=== PATIENT | male | born 1960 | race Caucasian/White ===

== ENCOUNTER → 2017-04-23 | Outpatient (CLI) | payer OTHER ==
[2017-04-23 08:09] LABS: ABSOLUTE BASOPHILS # (AUTO) 0.1 10^3/uL (0.0-0.2); ABSOLUTE EOSINOPHILS # (AUTO) 0.5 10^3/uL (0.0-0.6); ABSOLUTE LYMPHOCYTES (AUTO) 2.2 10^3/uL (0.5-4.7); ABSOLUTE MONOCYTES (AUTO) 0.8 10^3/uL (0.1-1.4); ABSOLUTE NEUT (AUTO) 3.7 10^3/uL (1.7-8.2); BASOPHILS % (AUTO) 1.2 % (0-2); EOSINOPHILS % (AUTO) 6.4 % (0-6); HEMATOCRIT 36.8 % (37.9-51.0); HEMOGLOBIN 11.8 g/dL (13.5-17.0); HGB HCT DIFFERENCE -1.4; LYMPHOCYTES % (AUTO) 30.2 % (13-45); MEAN CORPUSCULAR HEMOGLOBIN 31.5 pg (27.0-33.4); MEAN CORPUSCULAR HGB CONC 31.9 g/dL (32.0-36.0); MEAN CORPUSCULAR VOLUME 99 fl (80-97); MONOCYTES % (AUTO) 11.2 % (3-13); RED BLOOD COUNT 3.73 10^6/uL (4.35-5.55); WHITE BLOOD COUNT 7.2 10^3/uL (4.0-10.5)
[2017-04-23 08:13] LABS: APPEARANCE,URINE CLEAR; BILIRUBIN,URINE NEGATIVE (NEGATIVE); GLUCOSE, URINE NEGATIVE (NEGATIVE); KETONES,URINE NEGATIVE (NEGATIVE); LEUKOCYTE ESTERASE,URINE NEGATIVE (NEGATIVE); NITRITE,URINE NEGATIVE (NEGATIVE); PROTEIN,URINE NEGATIVE (NEGATIVE); URINE SPECIFIC GRAVITY 1.019; UROBILINOGEN,URINE NEGATIVE mg/dL (<2.0)
[2017-04-23 08:18] LABS: PROTHROMBIN TIME 13.3 SEC (11.4-15.4)
[2017-04-23 08:19] LABS: PARTIAL THROMBOPLASTIN TIME 32.3 SEC (23.5-35.8)
== END ==
LOC: OD 07:36
PROVIDERS: ATTEND Pain Medicine Interventional Pain Medicine
DX: Z79.1 Long term (current) use of non-steroidal anti-inflammatories (NSAID) (principal)
CPT/HCPCS: 36415; 81001; 85025; 85610; 85730

== ENCOUNTER 2017-05-24 06:18 | Emergency (ER) | payer OTHER ==
--- NOTE | 2017-05-24 07:30 | ER Document Report ---
HPI - HPI Patient complains to provider of: Right shoulder injury May 02 Onset: Other - May 02 Onset/Duration: Persistent, Better Pain Level: 3 Context: 57-year-old male stumbled and fell into the wall hitting his right shoulder on May 02. The pain and bruising has improved but still persisted. He is already on pain management to the other orthopedic issues but he wants to make sure nothing is broken. Associated Symptoms: None Exacerbated by: Movement - Abduction Relieved by: Denies - ROS ROS below otherwise negative: Yes Systems Reviewed and Negative: Yes All other systems reviewed and negative - REPRODUCTIVE Reproductive: DENIES: : - DERM Skin Color: Normal Past Medical History - General Information source: Patient - Social History Smoking Status: Unknown if Ever Smoked Frequency of alcohol use: None Drug Abuse: None Lives with: Spouse/Significant other Family History: Reviewed & Not Pertinent, Arthritis, CAD, CVA, DM, Hyperlipidemia, Hypertension - Past Medical History Cardiac Medical History: Reports: Hx Hypercholesterolemia, Hx Hypertension Endocrine Medical History: Reports: Hx Diabetes Mellitus Type 2 Renal/ Medical History: Denies: Hx Peritoneal Dialysis GI Medical History: Reports: Hx Gastroesophageal Reflux Disease, Hx Colonoscopy Musculoskeltal Medical History: Reports Hx Arthritis, Reports Hx Musculoskeletal Deformity, Reports Hx Musculoskeletal Trauma - L leg Psychiatric Medical History: Reports: Hx Depression Traumatic Medical History: Reports: Hx Fractures Past Surgical History: Reports: Hx Kidney (Renal Surgery) - stones removed stent , Hx Oral Surgery, Hx Orthopedic Surgery - back, cancer removed for left thigh, left hip surgery x4, Hx Tonsillectomy - Immunizations Hx Diphtheria, Pertussis, Tetanus Vaccination: Yes Vertical Provider Document - CONSTITUTIONAL Agree With Documented VS: Yes Exam Limitations: No Limitations General Appearance: No Apparent Distress - INFECTION CONTROL TRAVEL OUTSIDE OF THE [place] IN LAST 30 DAYS: No - HEENT HEENT: Atraumatic, Normocephalic - NECK Neck: Supple - RESPIRATORY Respiratory: Breath Sounds Normal, No Respiratory Distress O2 Sat by Pulse Oximetry: 98 - CARDIOVASCULAR Cardiovascular: Regular Rate, Regular Rhythm - MUSCULOSKELETAL/EXTREMETIES Musculoskeletal/Extremeties: Non-Tender. negative: FROM Notes: unable to abduct right arm past 90 degrees due to right shoulder joint stiffness. no point tenderness, states it hurts inside the joint. Distal n/v intact. internal external and aduction OK. - NEURO Level of Consciousness: Awake, Alert, Appropriate Motor/Sensory: No Motor Deficit, No Sensory Deficit - DERM Integumentary: Warm, Dry, No Rash Course - Re-evaluation Re-evalutation: 05/24/17 X ray negative per radiologist. - Vital Signs Vital signs: Temp Pulse Resp BP Pulse Ox 98.6 F 86 20 104/62 98 05/24/17 06:39 05/24/17 06:39 05/24/17 06:39 05/24/17 06:39 05/24/17 06:39 Discharge - Discharge Clinical Impression: right shoulder injury, limited aduction of right shoulder Condition: Good Disposition: HOME, SELF-CARE Instructions: Shoulder Injury ([facility]), Exercise Program for the Shoulder ([facility]) Additional Instructions: call for orthopedic appointment this week gentle range of motion of the shoulder joint copy of negative xray reort per radiologist to er any concerns Please complete the patient satisfaction survey if you get one, and return it.. If you do not receive a survey, then you can go to the [facility] website, [email or web address] and place your comments about your very good care. Thank you very much. It was a pleasure being your medical provider today. Referrals: LORENA ARNOLD MD [ACTIVE STAFF] - Follow up in 3-5 days
--- NOTE | 2017-05-24 08:01 | RADIOLOGY REPORT (SQ) ---
EXAM DESCRIPTION: SHOULDER RIGHT 2 OR MORE VIEWS COMPLETED DATE/TIME: 05/24/2017 7:37 am REASON FOR STUDY: fall injury COMPARISON: None. NUMBER OF VIEWS: Three views. TECHNIQUE: Internal rotation, external rotation, and Y view images acquired of the right shoulder. LIMITATIONS: None. FINDINGS: MINERALIZATION: Normal. BONES: No acute fracture or dislocation. No worrisome bone lesions. JOINTS: No dislocation. VISUALIZED LUNGS AND RIBS: No pneumothorax. No rib fracture. SOFT TISSUES: No radiopaque foreign body. OTHER: No other significant finding. IMPRESSION: NEGATIVE STUDY OF THE RIGHT SHOULDER. NO RADIOGRAPHIC EVIDENCE OF ACUTE INJURY. TECHNICAL DOCUMENTATION: JOB ID: [id number] [employer]- All Rights Reserved
[2017-05-24 08:50] VITALS: BP 109/60
== END 2017-05-24 08:40 | disposition home or self-care (01) ==
LOC: ER 06:18
DX: S49.91XA Unspecified injury of right shoulder and upper arm, initial encounter (principal); X58.XXXA Exposure to other specified factors, initial encounter; E78.00 Pure hypercholesterolemia, unspecified; I10 Essential (primary) hypertension; E11.9 Type 2 diabetes mellitus without complications; K21.9 Gastro-esophageal reflux disease without esophagitis
CPT/HCPCS: 99283

== ENCOUNTER 2017-07-10 10:37 | Day surgery (SDC) | payer OTHER ==
--- NOTE | 2017-07-03 09:33 | RADIOLOGY REPORT (SQ) ---
EXAM DESCRIPTION: CHEST PA/LATERAL COMPLETED DATE/TIME: 07/03/2017 9:24 am REASON FOR STUDY: PRE-OP COMPARISON: CHEST FILMS 04/30/2015, 07/16/2015, 09/10/2015 EXAM PARAMETERS: NUMBER OF VIEWS: two views TECHNIQUE: Digital Frontal and Lateral radiographic views of the chest acquired. RADIATION DOSE: NA LIMITATIONS: none FINDINGS: LUNGS AND PLEURA: No opacities, masses or pneumothorax. No pleural effusion. MEDIASTINUM AND HILAR STRUCTURES: No masses or contour abnormalities. HEART AND VASCULAR STRUCTURES: Heart normal size. No evidence for failure. BONES: Osteopenic HARDWARE: None in the chest. OTHER: No other significant finding. IMPRESSION: NO SIGNIFICANT RADIOGRAPHIC FINDING IN THE CHEST. TECHNICAL DOCUMENTATION: JOB ID: [id number] [employer]- All Rights Reserved
[2017-07-03 09:58] LABS: ABSOLUTE BASOPHILS # (AUTO) 0.1 10^3/uL (0.0-0.2); ABSOLUTE EOSINOPHILS # (AUTO) 0.6 10^3/uL (0.0-0.6); ABSOLUTE LYMPHOCYTES (AUTO) 2.1 10^3/uL (0.5-4.7); ABSOLUTE MONOCYTES (AUTO) 0.9 10^3/uL (0.1-1.4); ABSOLUTE NEUT (AUTO) 4.9 10^3/uL (1.7-8.2); BASOPHILS % (AUTO) 1.4 % (0-2); EOSINOPHILS % (AUTO) 6.8 % (0-6); HEMATOCRIT 36.5 % (37.9-51.0); HEMOGLOBIN 12.3 g/dL (13.5-17.0); HGB HCT DIFFERENCE 0.4; MEAN CORPUSCULAR HEMOGLOBIN 32.3 pg (27.0-33.4); MEAN CORPUSCULAR HGB CONC 33.6 g/dL (32.0-36.0); MEAN CORPUSCULAR VOLUME 96 fl (80-97); MONOCYTES % (AUTO) 10.8 % (3-13); RED CELL DISTRIBUTION WIDTH 14.1 % (11.5-14.0); WHITE BLOOD COUNT 8.7 10^3/uL (4.0-10.5)
[2017-07-03 10:15] LABS: APPEARANCE,URINE CLEAR; BILIRUBIN,URINE NEGATIVE (NEGATIVE); GLUCOSE, URINE NEGATIVE (NEGATIVE); KETONES,URINE NEGATIVE (NEGATIVE); LEUKOCYTE ESTERASE,URINE NEGATIVE (NEGATIVE); NITRITE,URINE NEGATIVE (NEGATIVE); PROTEIN,URINE NEGATIVE (NEGATIVE); URINE SPECIFIC GRAVITY 1.019; UROBILINOGEN,URINE NEGATIVE mg/dL (<2.0)
[2017-07-03 10:23] LABS: ANION GAP 17 (5-19); BLOOD UREA NITROGEN 23 mg/dL (7-20); CALCIUM 9.7 mg/dL (8.4-10.2); CARBON DIOXIDE 24 mmol/L (22-30); CHLORIDE 104 mmol/L (98-107); CREATININE RESULT 1.26 mg/dL (0.52-1.25); GLUCOSE 84 mg/dL (75-110); POTASSIUM 4.4 mmol/L (3.6-5.0); SODIUM 144.5 mmol/L (137-145)
--- NOTE | 2017-07-03 22:03 | EKG REPORT ---
SEVERITY:- NORMAL ECG - SINUS RHYTHM : Confirmed by: Heri Steve 03-Jul-2017 22:02:52
[~2017-07-10 10:37] MED LIST: CEFAZOLIN 2 GM/D5W RTU 2 GM/50 ML RTUPB IV PRN; NORMAL SALINE 1000 ML (RENAL PATIENTS) IV PRN
[2017-07-10 11:33] LABS: POTASSIUM 4.2 mmol/L (3.6-5.0)
[2017-07-10] MEDS ORDERED: FENTANYL CITRATE INJ/PF 250 MCG/5 ML AMPULE ONE (12:08)
[2017-07-10] MEDS ORDERED: ACETAMINOPHEN 100 ML IV ONE (12:09)
[2017-07-10] MEDS ORDERED: MORPHINE SULFATE 10 MG/ML INJ ONE (12:09)
[2017-07-10] MEDS ORDERED: PROPOFOL INJ 200 MG/20 ML VIAL IV ONE (12:09)
[2017-07-10] MEDS ORDERED: MIDAZOLAM 2 MG/2 ML INJ ONE (12:09)
[2017-07-10] MEDS ORDERED: FENTANYL CITRATE INJ/PF 100 MCG/2 ML AMPUL ONE ×2 (12:09→12:33)
[2017-07-10] MEDS ORDERED: METOCLOPRAMIDE HCL INJ/PF 10 MG/2 ML SDV ONE (12:15)
[2017-07-10] MEDS ORDERED: FAMOTIDINE INJ/PF 20 MG/2 ML SDV IV ONE (12:15)
[2017-07-10] MEDS ORDERED: ALBUTEROL SULFATE 0.083% NEB 2.5 MG/3 ML AMPUL NEB ONE (12:15)
[2017-07-10] MEDS ORDERED: NEOSTIGMINE METHYLSULFATE 10 MG/10 ML VIAL ONE (12:18)
[2017-07-10] MEDS ORDERED: GLYCOPYRROLATE INJ 0.4 MG/2 ML VIAL ONE (12:18)
[2017-07-10] MEDS ORDERED: DEXAMETHASONE SOD PHOSPHATE INJ 4 MG/1 ML VIAL ONE (12:18)
[2017-07-10] MEDS ORDERED: KETOROLAC TROMETHAMINE 60 MG/2 ML SDV ONE (12:18)
[2017-07-10] MEDS ORDERED: SUCCINYLCHOLINE CHLORIDE INJ 200 MG/10 ML VIAL ONE (12:18)
[2017-07-10] MEDS ORDERED: PHENYLEPHRINE HCL INJ/PF 10 MG/1 ML SDV ONE (12:18)
[2017-07-10] MEDS ORDERED: LIDOCAINE 2% INJ-PF (20 MG/ML) 10 ML AMPUL ONE (12:18)
[2017-07-10] MEDS ORDERED: ONDANSETRON HCL INJ/PF 4 MG/2 ML SDV ONE (12:18)
[2017-07-10] MEDS ORDERED: ROCURONIUM BROMIDE INJ 50 MG/5 ML VIAL IV ONE (12:18)
[2017-07-10] MEDS ORDERED: DEXMEDETOMIDINE INJ 80 MCG/20 ML VIAL IV ONE (12:33)
[2017-07-10] MEDS ORDERED: RINGERS SOLUTION,LACTATED 1,000 ML IV ONE (13:30)
[2017-07-10] MEDS ORDERED: MEPERIDINE HCL/PF INJ 25 MG/1 ML DISP.SYRIN IV PRN (13:32)
[2017-07-10] MEDS ORDERED: PROMETHAZINE HCL INJ 25 MG/1 ML VIAL IV PRN ×2 (13:32)
[2017-07-10] MEDS ORDERED: FENTANYL CITRATE INJ/PF 100 MCG/2 ML AMPUL IV PRN ×3 (13:32)
[2017-07-10] MEDS ORDERED: DIPHENHYDRAMINE HCL 50 MG/ML VIAL IV PRN (13:32)
[2017-07-10] MEDS ORDERED: MORPHINE SULFATE 10 MG/ML INJ IV PRN (13:32)
[2017-07-10] MEDS ORDERED: OXYCODONE-ACETAMINOPHEN 5-325 MG TABLET PO PRN ×4 (13:32→16:31)
[2017-07-10] MEDS ORDERED: EPINEPHRINE INJ/PF 1 MG/1 ML AMPULE ONE (14:07)
[2017-07-10] MEDS ORDERED: BUPIVACAINE HCL 0.5 % INJ/PF 30 ML SDV ONE (14:07)
[2017-07-10] MEDS: FENTANYL CITRATE INJ/PF 100 MCG/2 ML AMPUL ONE ×2 (16:17→16:22)
--- NOTE | 2017-07-10 16:31 | PDOC DISCHARGE SUMMARY ---
Discharge Summary (SDC) - Discharge Final Diagnosis: Status post rotator cuff repair and biceps tenodesis Date of Surgery: 07/10/17 Discharge Date: 07/10/17 Condition: Good Treatment or Instructions: Patient is instructed to follow up in 10-14 days. Patient instructed to remove dressing in 4 days then can shower and apply Band- Aids as needed. Patient to wear sling for comfort but okay to remove for shower and pendulum exercises. Pendulum exercises are instructed to be done 3 times a day ideally with breakfast, lunch, dinners and showers. Patient instructed to call if there is any signs of redness or drainage fevers or chills. Discharge Diet: As Tolerated Respiratory Treatments at Home: Deep Breathing/Coughing Discharge Activity: No Driving, No Lifting/Push/Pulling, Walk Frequently Home Care Assistance: None Needed Report the Following to Your Physician Immediately: Shortness of Breath, Vomiting, Increase in Pain, Fever over 101 Degrees, Unusual Bleeding, Redness, Swelling, Warmth, Increased Soreness, Drainage-Yellow, Drainage-Fernandez, Drainage- Green, Drainage-Foul Smelling
[2017-07-10] MEDS ORDERED: HYDROMORPHONE HCL 2 MG TABLET PO PRN (16:32)
[2017-07-10 19:03] VITALS: BP 118/72
--- NOTE | 2017-08-05 10:32 | OPERATIVE REPORT E ---
Operative Report NAME: JOSE ECHOLS : 1960 AGE: 57Y DATE OF SURGERY: 07/10/2017 ROOM: PREOPERATIVE DIAGNOSES: Right large rotator cuff tear and degenerative SLAP tear. POSTOPERATIVE DIAGNOSES: Right large rotator cuff tear and degenerative SLAP tear. PROCEDURE: Right shoulder arthroscopic rotator cuff repair and arthroscopic biceps tenodesis. SURGEON: YOUNG CONTRERAS M.D. ANESTHESIA: General. ESTIMATED BLOOD LOSS: Less than 20 mL. COMPLICATIONS: None. IMPLANT USED: Arthrex 5.5 corkscrew x2 and 4.75 swivel lock x2. DISPOSITION: Stable to PACU. DESCRIPTION OF PROCEDURE: Patient received preoperative antibiotics and was brought to the operating room where he was induced and intubated in supine position. Patient was then secured in a beach chair position and the right upper extremity was prepped and draped in a normal sterile surgical fashion. Timeout was done identifying the right shoulder as the correct site. A spinal needle was used as access to the glenohumeral joint and a sterile saline solution was used to distend the capsule. The 11 blade was used to establish the posterior portal and the camera was introduced. Return of fluid showed proper placement of the cannula and the camera was introduced. At this point diagnostic scope was done showing the patient had a large rotator cuff tear with slight retraction. Anterior portal was established and probe showed that the patient had degenerative labral tear and tearing of the biceps, so arthroscopic scissors were used to do a tenotomy of the long head of the biceps. At this point, the camera and the scope was redirected to the subacromial space and a lateral portal was established. Formal bursectomy was done and using a rotator cuff grasper, we were able to show that the infraspinatus was mobile and was able to be turned. Supraspinatus was under tension but also was able to be brought back to at least articular margin. We proceeded to place 2 anchors percutaneously at the articular margin, one anterior and one posterior. With proper suture management, we were able to pass all the strands through the infraspinatus and supraspinatus. We then proceeded to do arthroscopic knots to secure the rotator cuff back onto the greater tuberosity. I proceeded to start posteriorly, reattaching the infraspinatus and then the supraspinatus was done at the end. The infraspinatus came back nicely but the supraspinatus was under significant tension. I used a Scorpion FastPass to capture the long head of the biceps and then passed the strands through the rotator cuff repair to add it to the repair. I did an arthroscopic biceps tenodesis to carry into the rotator cuff repair. I proceeded to use the strands for a lateral row and placed 2 swivel locks on the lateral aspect. The remaining strands were cut with arthroscopic scissors. Pictures were taken showing my repair and biceps tenodesis. At this point fluid from the shoulder was removed and portals were closed with 3-0 nylon. They were covered with Xeroform, 4 x 4 dressing, ABD pad. This was secured with Medipore tape. Drapes were removed and the patient was placed in a sling. He was then placed in a supine position where he was extubated and returned to PACU in stable condition. DICTATING PHYSICIAN: Natacha VILLA [id number] PHY#: [id number] ID: [id number] JOB#: [id number] ACCT: [id number] cc:YOUNG ARZOLA M.D. >
== END 2017-07-10 18:10 | disposition home or self-care (01) ==
LOC: OROUT 10:37
PROVIDERS: ATTEND Orthopaedic Surgery
PROC: 0LS14ZZ Reposition Right Shoulder Tendon, Percutaneous Endoscopic Approach (ICD-10-PCS; 2017-07-10)
PROC: 0LM14ZZ Reattachment of Right Shoulder Tendon, Percutaneous Endoscopic Approach (ICD-10-PCS; principal; 2017-07-10 13:00)
DX: M75.121 Complete rotator cuff tear or rupture of right shoulder, not specified as traumatic (principal); I10 Essential (primary) hypertension; E11.9 Type 2 diabetes mellitus without complications; F17.210 Nicotine dependence, cigarettes, uncomplicated; M10.9 Gout, unspecified; K21.9 Gastro-esophageal reflux disease without esophagitis; Z79.899 Other long term (current) drug therapy; Z79.1 Long term (current) use of non-steroidal anti-inflammatories (NSAID); Z79.84 Long term (current) use of oral hypoglycemic drugs
CPT/HCPCS: 29827; 29828; 93005; 36415 ×2; 82947; 84132; 85025; 80048; 81001; 83036; 71020; 93010; 94640; C1713; J2250; J3490 ×3; J1100; J0171; J1885; J3010 ×2; J2765; J2270; J2370; J0330; J2405; J2704; S0028; J0690; J0131; 1630

== ENCOUNTER 2018-08-22 06:53 | Emergency (ER) | payer MEDICARE, OTHER ==
[2018-08-22 07:02] VITALS: BP 135/74
--- NOTE | 2018-08-22 07:35 | RADIOLOGY REPORT (SQ) ---
CLINICAL DATA: 58-year-old male with left shoulder pain status post fall TECHNICAL DATA: Three x-ray views of the left shoulder were performed on 08/22/2018 at 7:50 AM. COMPARISONS: None FINDINGS: There is no evidence of fracture or dislocation. There is no significant arthritis or degenerative change. No focal lytic or sclerotic bone lesions are seen. Bone mineralization is normal No focal soft tissue abnormalities are identified. IMPRESSION: No evidence of acute osseous injury involving the left shoulder.
--- NOTE | 2018-08-22 07:41 | ER Document Report ---
HPI - HPI Pain Level: 4 Notes: Patient is a 58-year-old male with a history of chronic pain who presents to the ED complaining of left shoulder pain status post injury 2 days ago. Patient states that he was lifting a box over his head onto a shelf when he started to fall back and believes he may have twisted his shoulder. Patient states that the pain does not radiate. He is still able to use his arm, but does have pain more so with overhead activities. Denies drug allergies. Reports a previous surgical history to his right shoulder. Patient states that the pain feels somewhat similar to an injury on that shoulder. Patient states that he is not requesting any narcotics as he is on a pain contract. Denies any headache, fever, head injury, neck pain, URI, sore throat, chest pain, palpitations, syncope, cough, shortness of breath, wheeze, dyspnea, abdominal pain, nausea/vomiting/diarrhea, urinary retention, dysuria, hematuria, loss of control of bowel or bladder, numbness/tingling, muscle paralysis/weakness, or rash. - ROS Systems Reviewed and Negative: Yes All other systems reviewed and negative - REPRODUCTIVE Reproductive: DENIES: : - MUSCULOSKELETAL Musculoskeletal: REPORTS: Extremity pain - shldr Past Medical History - Social History Smoking Status: Unknown if Ever Smoked Drug Abuse: Prescription drugs Family History: Reviewed & Not Pertinent, Arthritis, CAD, CVA, DM, Hyperlipidemia, Hypertension Patient has suicidal ideation: No Patient has homicidal ideation: No - Past Medical History Cardiac Medical History: Reports: Hx Hypercholesterolemia, Hx Hypertension - ON MEDS Denies: Hx Coronary Artery Disease, Hx Heart Attack Pulmonary Medical History: Reports: Hx Pneumonia - CHILD Denies: Hx Asthma, Hx Bronchitis, Hx COPD Neurological Medical History: Denies: Hx Cerebrovascular Accident, Hx Seizures Endocrine Medical History: Reports: Hx Diabetes Mellitus Type 2 Renal/ Medical History: Denies: Hx Peritoneal Dialysis GI Medical History: Reports: Hx Gastroesophageal Reflux Disease, Hx Colonoscopy Musculoskeletal Medical History: Reports Hx Arthritis - GENERALIZED, Reports Hx Musculoskeletal Deformity, Reports Hx Musculoskeletal Trauma - L leg Psychiatric Medical History: Reports: Hx Depression Traumatic Medical History: Reports: Hx Fractures Past Surgical History: Reports: Hx Kidney (Renal Surgery) - stones removed stent , Hx Oral Surgery, Hx Orthopedic Surgery - back, cancer removed for left thigh, left hip surgery x4, Hx Tonsillectomy - Immunizations Hx Diphtheria, Pertussis, Tetanus Vaccination: Yes Vertical Provider Document - CONSTITUTIONAL Agree With Documented VS: Yes Notes: PHYSICAL EXAMINATION: GENERAL: Well-appearing, well-nourished and in no acute distress. NECK: Normal range of motion, supple without lymphadenopathy. Non-tender. Spurling negative. No rigidity/meningismus. LUNGS: Breath sounds clear to auscultation bilaterally and equal. No wheezes rales or rhonchi. HEART: Regular rate and rhythm without murmurs, rubs, gallops. Musculoskeletal: Lt shoulder: FROM to passive. LROM to active due to pain. Strength 4+/5 due to pain. + impingement test. Neg speed test. No crepitus. No erythema or warmth. No deformity or ecchymosis. RC intact 4+/5 to external rotation but 5+/5 otherwise strength. Extremities: No cyanosis, clubbing, or edema b/l. Peripheral pulses 2+. Capillary refill less than 3 seconds. NEUROLOGICAL: Normal speech, normal gait. Normal sensory, motor exams PSYCH: Normal mood, normal affect. SKIN: Warm, Dry, normal turgor, no rashes or lesions noted. - INFECTION CONTROL TRAVEL OUTSIDE OF THE [place] IN LAST 30 DAYS: No Course - Re-evaluation Re-evalutation: 08/22/18 07:38 Patient is an afebrile, well-hydrated, 58-year-old male who presents to the ED with left shoulder pain which I suspect to be a sprain versus strain. Vitals are acceptable without any significant tachycardia, tachypnea, or hypoxia. PE is otherwise unremarkable for any neurovascular compromise, obvious tendon/ ligament rupture, obvious fracture/dislocation, septic joint. X-ray was unremarkable for any acute pathology. Pt has a sling at home he can use. Patient declined any Tylenol or ice. Patient is nontoxic-appearing. No other labs or imaging warranted at this time based on H&P. Conservative measures otherwise for symptoms. Recheck with your PCM in 3-5 days. Consider consult orthopedics. Return to the ED with any worsening/concerning symptoms otherwise as reviewed in discharge. Patient is in agreement. - Vital Signs Vital signs: Temp Pulse Resp BP Pulse Ox 98.3 F 88 18 135/74 H 96 08/22/18 07:01 08/22/18 07:01 08/22/18 07:01 08/22/18 07:01 08/22/18 07:01 Discharge - Discharge Clinical Impression: Left shoulder pain Qualifiers: Chronicity: acute Qualified Code(s): M25.512 - Pain in left shoulder Condition: Stable Disposition: HOME, SELF-CARE Instructions: Exercise Program for the Shoulder ([facility]) Additional Instructions: Rest, Ice Tylenol/ibuprofen as needed Light stretches daily Strength exercises as able Moist heat and massage may help F/u with your PCP in 3-5 days for a recheck Consider consult(s) with Orthopedics/physical therapy for ongoing/worsening symptoms Return to the ED with any worsening symptoms and/or development of fever, headache, chest pain, palpitations, syncope, shortness of breath, trouble breathing, abdominal pain, n/v/d, muscle weakness/paralysis, numbness/tingling, swelling, redness, or other worsening symptoms that are concerning to you. Prescriptions: Diclofenac Sodium [Voltaren] 4 gm TP QID PRN #100 gel..gm. PRN Reason: Forms: Elevated Blood Pressure Referrals: ORTHOPEDICS [Provider Group] - Follow up as needed
== END 2018-08-22 07:44 | disposition home or self-care (01) ==
LOC: ER 06:53
DX: M25.512 Pain in left shoulder (principal); X50.1XXA Overexertion from prolonged static or awkward postures, initial encounter; I10 Essential (primary) hypertension; Z79.899 Other long term (current) drug therapy; E11.9 Type 2 diabetes mellitus without complications
CPT/HCPCS: 99283

== ENCOUNTER → 2019-03-10 | Outpatient (CLI) | payer MEDICARE, OTHER ==
--- NOTE | 2019-03-10 09:43 | RADIOLOGY REPORT (SQ) ---
EXAM DESCRIPTION: ANKLE LEFT COMPLETE COMPLETED DATE/TIME: 03/10/2019 9:08 am REASON FOR STUDY: PAIN IN LEFT ANKLE AND JPINTS OF LEFT FOOT COMPARISON: None. NUMBER OF VIEWS: Three views. TECHNIQUE: AP, lateral, and oblique radiographic images acquired of the left ankle. LIMITATIONS: None. FINDINGS: MINERALIZATION: Normal. BONES: Plantar calcaneal bone spur. Pseudoperiostitis between distal tibia and fibula. No acute fra cture. JOINTS: No effusions. SOFT TISSUES: No soft tissue swelling. No foreign body. OTHER: No other significant finding. IMPRESSION: Plantar calcaneal bone spur. No fracture seen. TECHNICAL DOCUMENTATION: JOB ID: [id number] [employer]- All Rights Reserved Reading location - IP/workstation name: [email or web address]
== END ==
LOC: RAD 08:35
PROVIDERS: ATTEND Pain Medicine Interventional Pain Medicine
DX: M25.572 Pain in left ankle and joints of left foot (principal)

== ENCOUNTER 2019-04-29 21:01 | Emergency (ER) | payer MEDICARE, OTHER ==
[2019-04-29 23:40] LABS: ABSOLUTE BASOPHILS # (AUTO) 0.1 10^3/uL (0.0-0.2); ABSOLUTE LYMPHOCYTES (AUTO) 0.9 10^3/uL (0.5-4.7); ABSOLUTE MONOCYTES (AUTO) 1.9 10^3/uL (0.1-1.4); ABSOLUTE NEUT (AUTO) 12.5 10^3/uL (1.7-8.2); BASOPHILS % (AUTO) 0.5 % (0-2); HEMATOCRIT 34.5 % (37.9-51.0); HEMOGLOBIN 11.1 g/dL (13.5-17.0); LYMPHOCYTES % (AUTO) 5.7 % (13-45); MEAN CORPUSCULAR HEMOGLOBIN 26.3 pg (27.0-33.4); MEAN CORPUSCULAR HGB CONC 32.1 g/dL (32.0-36.0); MEAN CORPUSCULAR VOLUME 82 fl (80-97); MONOCYTES % (AUTO) 12.5 % (3-13); PLATELET COUNT 213 10^3/uL (150-450); RED BLOOD COUNT 4.22 10^6/uL (4.35-5.55); SEGMENTED NEUTROPHILS % (AUTO) 81.3 % (42-78); TOTAL CELLS COUNTED % (AUTO) 100 %; WHITE BLOOD COUNT 15.4 10^3/uL (4.0-10.5)
[2019-04-29 23:53] LABS: ALANINE AMINOTRANSFERASE 26 U/L (21-72); ALBUMIN 3.9 g/dL (3.5-5.0); ALKALINE PHOSPHATASE 104 U/L (38-126); ANION GAP 13 (5-19); ASPARTATE AMINO TRANSFERASE 26 U/L (17-59); BILIRUBIN,DIRECT 0.2 mg/dL (0.0-0.4); BILIRUBIN,TOTAL 0.3 mg/dL (0.2-1.3); BLOOD UREA NITROGEN 21 mg/dL (7-20); CALCIUM 9.2 mg/dL (8.4-10.2); CARBON DIOXIDE 24 mmol/L (22-30); CHLORIDE 102 mmol/L (98-107); GLUCOSE 125 mg/dL (75-110); POTASSIUM 3.7 mmol/L (3.6-5.0); SODIUM 138.5 mmol/L (137-145); TOTAL PROTEIN 6.5 g/dL (6.3-8.2)
[2019-04-30] MEDS ORDERED: NORMAL SALINE 1000 ML 1,000 ML IV ONE (01:15)
[2019-04-30] MEDS: HYDROMORPHONE HCL INJ/PF 2 MG/ML AMPULE IV ONE ×2 (01:27→01:43)
--- NOTE | 2019-04-30 02:30 | RADIOLOGY REPORT (SQ) ---
EXAM DESCRIPTION: Left hip RadLex: XR HIP 2 OR MORE VIEWS Views: 3, AP pelvis and 2 additional views of left hip CLINICAL HISTORY: 59 years Male, pain, decreased ROM Radiation treatments in 2003. Damaged left hip. Left replacement September 2015. COMPARISON: 09/10/2015 FINDINGS: Alignment is anatomic. Posterior fixation hardware is partially visualized in the lower lumbar spine. Right hip is intact without dislocation. Left hip: Arthroplasty is again noted. No dislocation. Since 2014, the cerclage wire has broken. There is also extensive scattered lucencies in the cortex adjacent to the stem of the prosthesis. There is lucency along the prosthesis, suggesting loosening no acute fracture. IMPRESSION: 1. Left hip arthroplasty as seen in 2014. Since that time, there is evidence for loosening of the prosthesis, as described. The scattered lytic changes along the cortex adjacent to the prosthesis raises concern for osteomyelitis. 2. No fracture or dislocation
[2019-04-30] MEDS ORDERED: CEFTRIAXONE 1 GM/D5W RTU 1 GM/50 ML RTUPB IV ONE (02:39)
[2019-04-30] MEDS ORDERED: VANCOMYCIN HCL INJ 1000 MG VIAL IV ONE (02:39)
[2019-04-30 02:52] LABS: APPEARANCE,URINE CLEAR; BILIRUBIN,URINE NEGATIVE (NEGATIVE); COLOR,URINE YELLOW; GLUCOSE, URINE NEGATIVE (NEGATIVE); KETONES,URINE NEGATIVE (NEGATIVE); LEUKOCYTE ESTERASE,URINE NEGATIVE (NEGATIVE); NITRITE,URINE NEGATIVE (NEGATIVE); PROTEIN,URINE NEGATIVE (NEGATIVE); URINE SPECIFIC GRAVITY 1.014; UROBILINOGEN,URINE NEGATIVE mg/dL (<2.0)
[2019-04-30] MEDS ORDERED: HYDROMORPHONE HCL INJ/PF 2 MG/ML AMPULE IV ONE ×3 (03:22→10:38)
[2019-04-30] MEDS ORDERED: ACETAMINOPHEN 325 MG TABLET PO ONE (05:00)
--- NOTE | 2019-04-30 05:48 | ER Document Report ---
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 Patient states he developed a lowgrade fever of 100.7 2 days ago that eventually broke after taking BC powder. 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 He states he was no longer able to ambulate and has significantly decreased range of motion of his left lower extremity. Patient states he has previously had similar pain which was diagnosed with an infection of left hip 6 week post- op several years ago. He also complains of chest pain, described as pressure, that is no longer present. He denies any hematuria, sore throat, rhinorrhea, earaches or trouble breathing. Patient reports being informed his WBC was low by his PCP 2-3 weeks ago. TRAVEL OUTSIDE OF THE [place] IN LAST 30 DAYS: No - Related Data Allergies/Adverse Reactions: No Known Allergies Allergy (Verified 07/02/17 09:37) Past Medical History - General Information source: Patient - Social History Smoking Status: Current Every Day Smoker Chew tobacco use (# tins/day): No Frequency of alcohol use: None Drug Abuse: None Family History: Reviewed & Not Pertinent, Arthritis, CAD, CVA, DM, Hyperlipidem ia, Hypertension Patient has suicidal ideation: No Patient has homicidal ideation: No - Past Medical History Cardiac Medical History: Reports: Hx Hypercholesterolemia, Hx Hypertension - ON MEDS Pulmonary Medical History: Reports: Hx Pneumonia - CHILD Endocrine Medical History: Reports: Hx Diabetes Mellitus Type 2 Malignancy Medical History: Reports Other - Liposarcoma, area removed, radiation GI Medical History: Reports: Hx Gastroesophageal Reflux Disease, Hx Colonoscopy Musculoskeletal Medical History: Reports Hx Arthritis - GENERALIZED, Reports Hx Musculoskeletal Deformity, Reports Hx Musculoskeletal Trauma - L leg Psychiatric Medical History: Reports: Hx Depression Traumatic Medical History: Reports: Hx Fractures Past Surgical History: Reports: Hx Kidney (Renal Surgery) - stones removed stent, Hx Oral Surgery, Hx Orthopedic Surgery - back, cancer removed for left thigh, left hip surgery x4, Hx Tonsillectomy - Immunizations Hx Diphtheria, Pertussis, Tetanus Vaccination: Yes Review of Systems - Review of Systems Constitutional: No symptoms reported EENT: No symptoms reported Cardiovascular: See HPI, Chest pain Respiratory: No symptoms reported Gastrointestinal: No symptoms reported Genitourinary: No symptoms reported Male Genitourinary: No symptoms reported Musculoskeletal: See HPI Skin: No symptoms reported Hematologic/Lymphatic: No symptoms reported Neurological/Psychological: No symptoms reported -: Yes All other systems reviewed and negative Physical Exam - Vital signs Vitals: Temp Pulse Resp BP Pulse Ox 100.5 F H 117 H 20 104/60 94 04/29/19 21:08 04/29/19 21:08 04/29/19 21:08 04/29/19 21:08 04/29/19 21:08 - Notes Notes: GENERAL: Alert, interacts well. No acute distress. HEAD: Normocephalic, atraumatic. EYES: Pupils equal, round, and reactive to light. Extraocular movements intact. ENT: Oral mucosa moist, tongue midline. NECK: Full range of motion. Supple. Trachea midline. LUNGS: Clear to auscultation bilaterally, no wheezes, rales, or rhonchi. No respiratory distress. HEART: Regular rate and rhythm. No murmurs, gallops, or rubs. ABDOMEN: Soft, non-tender. Non-distended. Bowel sounds present in all 4 quadrants. No guarding, rigidity, or rebound. EXTREMITIES: Moves all 4 extremities spontaneously. Able to LLE off the bed, significantly limited active and passive ROM. Complains of pain with internal and external log roll of LLE. Tender to palpate the greater trochanter, no erythema, no fluctuance. Post surgery and radiation skin changes to the left upper medial thigh, skin and muscle are firm to the touch, not tender to palpati on. Tender to palpate the left hip. 2+ pitting edema of the LLE, patient reports is chronic. NEUROLOGICAL: Alert and oriented x3. Normal speech. PSYCH: Normal affect, normal mood. SKIN: Warm, dry. Course - Re-evaluation Re-evalutation: 04/30/19 03:53 CBC shows leukocytosis of 15.4, anemia with a hemoglobin 11.1, platelets normal, CMP shows basically chronic renal failure with a BUN of 21 and creatinine 1.47 only slightly worse than 2017, urinalysis unremarkable, patient was sent for hip x-ray given the degree of pain and restriction of range of motion and it shows a left hip arthroplasty is seen in 2015. Since that time there is evidence for loosening of the prosthesis and the scattered lytic changes along the cortex adjacent to the prosthesis raises concern for osteomyelitis. I did discuss this case with the hospitalist Dr. Crooks who states that since we do not have orthopedic surgery sponsorship manager he does not feel we can appropriately manage it here as they will likely have to have the prosthesis removed. I then discussed this with the patient who request [facility] in [facility] to access orthopedic surgery there. Transfer line discussed with Dr. Sanabria the orthopedic surgeon on-call who says they do not do total hips on their service with the exception of one person and therefore he does not feel it would be appropriate to bring the person over knowing that they would not be able to provide complete care to this patient at all times. They recommend seeking transfer to another facility. 04/30/19 05:23 As [facility] is unable to accept this transfer patient requests we try [facility] next. 04/30/19 05:[address] Naga Fried the orthopedic surgeon on-call at [facility], he agrees to accept the patient to his service. He is somewhat frustrated by the fact that we gave antibiotics for this patient with osteomyelitis. I do have concern for septic joint in addition to the osteomyelitis. Patient was given Rocephin and vancomycin already. I have asked the transfer line to call Dr. Fried back and see if he would like us to continue Rocephin and vancomycin now that has been started while we await a bed or if he would like us to hold off on any further antibiotics. 04/30/19 06:09 Dr. Fried requests no further antibiotics. 04/30/19 06:37 Dr. Fried has apparently reviewed the films with 1 of his partners who does total joint on a regular basis and states that this is more complicated than they can take care of at [facility] at this time and recommends transfer to a tertiary center such as [place] or [facility]. Dr. Fried will no longer be accepting this patient. 04/30/19 06:37 04/30/19 07:[address] Layton from orthopedic surgery at [facility] who states that he is not certain the patient is going to be admitted, thinks that the patient will likely end up being discharged home to follow-up as an outpatient in the total joint clinic. However given the disparate opinions of the orthopedic surgeons at [facility] and the concerns of my hospitalist he has agreed to bring the patient to the emergency department and do an evaluation there and arrange for appropriate treatment based off of his examination at [place]. I have discussed with the patient the possibility that he may end up being discharged to home from the emergency department at [place] and the patient understands this and would still like to go to [place] for further evaluation and treatment by their orthopedic surgeon. Ambulance transport will be arranged. Patient is stable for transport at this time, pain is moderately well controlled. Patient is aware he can ask for pain medication at any time. - Vital Signs Vital signs: Temp Pulse Resp BP Pulse Ox 99.0 F 117 H 12 114/66 93 04/30/19 06:33 04/29/19 21:08 04/30/19 06:01 04/30/19 06:00 04/30/19 06:01 - Laboratory Result Diagrams: 04/29/19 23:18 04/29/19 23:18 Laboratory results interpreted by me: 04/29/19 04/29/19 04/30/19 23:18 23:18 06:30 WBC 15.4 H RBC 4.22 L Hgb 11.1 L Hct 34.5 L MCH 26.3 L RDW 20.0 H Seg Neutrophils % 81.3 H Lymphocytes % 5.7 L Absolute Neutrophils 12.5 H Absolute Monocytes 1.9 H BUN 21 H Creatinine 1.47 H Est GFR ( Amer) 59 L Est GFR (Non-Af Amer) 49 L Glucose 125 H Lactic Acid 0.6 L Discharge - Discharge Clinical Impression: periprosthetic infection left hip, Hip osteomyelitis, left Osteomyelitis of left femur Qualifiers: Osteomyelitis type: unspecified type Qualified Code(s): M86.9 - Osteomyelitis, unspecified Condition: Fair Disposition: [place] Referrals: ELAINE MARIE NP [Primary Care Provider] - Follow up as needed I personally performed the services described in the documentation, reviewed and edited the documentation which was dictated to the scribe in my presence, and it accurately records my words and actions.
--- NOTE | 2019-04-30 10:39 | ER Document Report ---
Doctor's Note Notes: 04/30/19 10:38 I supervised this patient's care, while awaiting transport to [place] for osteomyelitis and loosening of his hip prosthesis. The patient remained stable throughout the course of his stay. I did reevaluate and write for transport. 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 He is neurovascularly intact to the lower extremities. I did go ahead and order him 1 mg of IV Dilaudid. He left the department in stable condition.
[2019-04-30 10:44] VITALS: BP 129/68
== END 2019-04-30 10:52 | disposition short-term general hospital (02) ==
LOC: ER 21:01
DX: M86.8X5 Other osteomyelitis, thigh (principal); M86.9 Osteomyelitis, unspecified; R50.9 Fever, unspecified; M25.552 Pain in left hip; E78.00 Pure hypercholesterolemia, unspecified; I10 Essential (primary) hypertension; E11.9 Type 2 diabetes mellitus without complications; Z96.642 Presence of left artificial hip joint
CPT/HCPCS: 96376; 99285; 96361; 96375; 96365; 96366; 96368; 36415; 87040; 87086; 85025; 80053; 81001; 83605; 73502; A9270; J1170; J7030; J3370; J0696

== ENCOUNTER → 2019-07-18 | Outpatient (CLI) | payer MEDICARE, OTHER ==
--- NOTE | 2019-07-19 08:39 | RADIOLOGY REPORT (SQ) ---
EXAM DESCRIPTION: MRI LT LOWER JOINT WITHOUT COMPLETED DATE/TIME: 07/18/2019 1:47 pm REASON FOR STUDY: M25.572 PAIN IN LEFT ANKLE AND JOINTS OF LEFT FOOT M25.572 PAIN IN LEFT ANKLE AND JOINTS OF LEFT FOOT COMPARISON: Radiographs from March TECHNIQUE: Left ankle images acquired and stored on PACS. Multiplanar images include fat sensitive s equences as T1, fluid sensitive sequences as FST2/STIR, cartilage sensitive sequences as FSPD, and gr adient echo sequences. LIMITATIONS: None. FINDINGS: BONE MARROW: No alteration of signal to suggest marrow replacement or edema. No occult fra cture. No large osteophytes. EFFUSIONS: Mild effusion. OSSEOUS ARTICULATIONS: Normal tibiotalar, subtalar, talonavicular and calcaneocuboid joints. TALAR DOME AND TIBIAL PLAFOND: Normal cartilage. No osteochondral defect. ACHILLES TENDON: Intact without partial or full-thickness tear. No adjacent bursal fluid or edema. TIBIALIS ANTERIOR TENDON: Intact without edema at the 1st MT attachment. TIBIALIS POSTERIOR TENDON: Normal morphology and no edema at the navicular attachment. No tendon mcwilliams th fluid. FLEXOR HALLUCIS LONGUS AND FLEXOR DIGITORUM TENDONS: Normal morphology and no tendon sheath fluid. No edema of the os trigonum. PERONEUS LONGUS AND BREVIS TENDON: Normal morphology and no tendon sheath fluid. No subluxation. ATFL, CFL, PTFL: Intact. No thickening or signal alteration. No ovi-ligamentous fluid. DELTOID LIGAMENT: Visualized components intact. TARSAL TUNNEL: No masses. No muscle atrophy. SINUS TARSI: No fluid. No reactive marrow edema or erosions. PLANTAR FASCIA: Intact. Mild calcaneal bone spur. ADJACENT SOFT TISSUES: Extensive superficial and deep subcutaneous edema and fluid along the distal l eg and about the ankle. This looks relatively diffuse. Mild edema in the flexor hallucis muscle, li kavita strain. OTHER: No other significant finding. IMPRESSION: 1. Soft tissue swelling in the distal leg and about the ankle. 2. Strain in the flexor hallucis muscle. 3. No ligament or tendon disruption. No fracture. Joints are relatively maintained. TECHNICAL DOCUMENTATION: JOB ID: [id number]- All Rights Reserved Reading location - IP/workstation name: [email or web address]
== END ==
LOC: RAD 12:55
PROVIDERS: ATTEND Pain Medicine Interventional Pain Medicine
DX: M25.572 Pain in left ankle and joints of left foot (principal)

== ENCOUNTER → 2019-11-29 | Outpatient (CLI) | payer MEDICARE, OTHER ==
--- NOTE | 2019-11-29 09:16 | RADIOLOGY REPORT (SQ) ---
EXAM DESCRIPTION: MRI LT UPPER JOINT WITHOUT COMPLETED DATE/TIME: 11/29/2019 8:37 am REASON FOR STUDY: TEAR OF LEFT ROTATOR CUFF (M75.102) M75.102 UNSP ROTATR-CUFF TEAR/RUPTR OF LEFT S HOULDER, NOT TR COMPARISON: None. TECHNIQUE: Left shoulder images acquired and stored on PACS. Multiplanar imaging to include fat sens itive sequences such as T1, water sensitive sequences such as FST2/STIR, cartilage sensitive sequence s such as FSPD/gradient-echo sequences. LIMITATIONS: Motion. FINDINGS: BONE MARROW AND CORTEX: No worrisome bone lesions or marrow replacement. No occult fractur es. JOINT OR BURSAL EFFUSION: Small amount of subacromial bursal fluid. GLENO-HUMERAL ARTICULATION: Advanced arthropathy. Superior migration of the humeral head. ACROMION AND AC JOINT: Type 2 acromion. Moderate AC joint arthropathy. ROTATOR CUFF AND INTERVAL: Atrophy of the supraspinatus and infraspinatus musculature. Full-thicknes s tears of the supraspinatus and infraspinatus with retraction. Mild fibrosis rotator interval. LABRUM AND BICEPS LABRAL COMPLEX: Intact as visualized. REMAINDER OF LABRUM AND IGHL : Posterior inferior labral tear. PERIARTICULAR AND ADJACENT SOFT TISSUES: No masses or abnormal nodes. OTHER: No other significant finding. IMPRESSION: 1. Full-thickness tears of the supraspinatus and infraspinatus with retraction and muscle atrophy. 2. AC and glenohumeral joint arthropathy. 3. Posterior inferior labral tear. TECHNICAL DOCUMENTATION: JOB ID: [id number] [employer]- All Rights Reserved Reading location - IP/workstation name: [email or web address]
== END ==
LOC: RAD 07:48
PROVIDERS: ATTEND Orthopaedic Surgery
DX: M75.102 Unspecified rotator cuff tear or rupture of left shoulder, not specified as traumatic (principal)

== ENCOUNTER → 2020-03-15 | Outpatient (CLI) | payer MEDICARE, OTHER ==
--- NOTE | 2020-03-15 10:01 | RADIOLOGY REPORT (SQ) ---
EXAM DESCRIPTION: MRI LUMBAR SPINE COMBO IMAGES COMPLETED DATE/TIME: 03/15/2020 9:16 am REASON FOR STUDY: POSTLAMINECTOMY SYNDROME, NEC (M96.1) M96.1 POSTLAMINECTOMY SYNDROME, NOT ELSEWHE RE CLASSIFIED COMPARISON: 01/15/2013 TECHNIQUE: Sagittal and Axial imaging includes T1, T1 post gadolinium, T2, STIR and gradient echo se quences. Coronal T2/HASTE imaging. CONTRAST TYPE AND DOSE: 20 mL Prohance. RENAL FUNCTION: Not indicated. ACR Type II contrast agent associated with few, if any, unconfounded cases of NSF LIMITATIONS: Metal artifact. FINDINGS: VISUALIZED UPPER ABDOMEN: Limited evaluation. No acute or suspicious findings suggested. SEGMENTATION: No transitional anatomy. The lowest well-developed disc space is labeled L5-S1. ALIGNMENT: Slight anterolisthesis of L3 relative to L4. VERTEBRAE: Intact. No fractures. BONE MARROW: Normal. No marrow replacement or reactive changes. DISC SIGNAL: Desiccation multiple levels. POSTERIOR ELEMENTS: See below. HARDWARE: Posterior fusion L3 through S1. CORD AND CONUS: Normal in size and signal intensity. Conus at the appropriate level. SOFT TISSUES: No aortic aneurysm seen. No bulky retroperitoneal adenopathy or mass. No paraspinal mas s or fluid. L1-L2: No significant spinal stenosis or exit foraminal stenosis. L2-L3: Mild spinal stenosis due to disc bulge and facet arthropathy. L3-L4: Right laminectomy defect. Minimal residual spinal stenosis. L4-L5: Right laminectomy. Minimal residual spinal stenosis. L5-S1: Disc bulge and facet arthropathy. No significant stenosis. LOWER THORACIC: Incompletely imaged. No stenosis seen. SACRUM: Visualized upper sacrum intact. ENHANCEMENT: No abnormal enhancement. OTHER: No other significant findings. IMPRESSION: Mild spinal stenosis L2- 3 status post fusion L3 through S1 status post right laminectom y at L3-4 and L4-5. TECHNICAL DOCUMENTATION: JOB ID: [id number] 2010 [employer]- All Rights Reserved Reading location - IP/workstation name: [email or web address]
== END ==
LOC: RAD 07:56
PROVIDERS: ATTEND Pain Medicine Interventional Pain Medicine
DX: M96.1 Postlaminectomy syndrome, not elsewhere classified (principal); M48.07 Spinal stenosis, lumbosacral region
CPT/HCPCS: 82565; 72158; A9576

== ENCOUNTER → 2020-04-06 | Outpatient (CLI) | payer MEDICARE, OTHER ==
--- NOTE | 2020-04-06 09:00 | RADIOLOGY REPORT (SQ) ---
EXAM DESCRIPTION: KNEE RIGHT 2 VIEWS IMAGES COMPLETED DATE/TIME: 04/06/2020 8:41 am REASON FOR STUDY: PAIN IN R KNEE COMPARISON: None. NUMBER OF VIEWS: AP, lateral common oblique views of the right knee from 05/28/2020. TECHNIQUE: AP and lateral radiographic images acquired of the right knee. LIMITATIONS: None. FINDINGS: MINERALIZATION: Normal. BONES: No acute fracture or dislocation. JOINT: Moderate to severe tricompartmental osteoarthrosis with an intra-articular loose body. There is no joint effusion. SOFT TISSUES: No soft tissue swelling. The quadriceps and patellar tendon silhouettes are intact. OTHER: No other finding. IMPRESSION: Moderate to severe tricompartmental osteoarthrosis that has progressed from 05/28/2016. TECHNICAL DOCUMENTATION: JOB ID: [id number] 2010 [employer]- All Rights Reserved Reading location - IP/workstation name: [email or web address]
== END ==
LOC: RAD 08:24
PROVIDERS: ATTEND Pain Medicine Interventional Pain Medicine
DX: M17.11 Unilateral primary osteoarthritis, right knee (principal); M25.561 Pain in right knee

== ENCOUNTER → 2020-07-17 | Outpatient (CLI) | payer MEDICARE, OTHER ==
[2020-07-17 09:43] LABS: ABSOLUTE BASOPHILS # (AUTO) 0.1 10^3/uL (0.0-0.2); ABSOLUTE EOSINOPHILS # (AUTO) 0.3 10^3/uL (0.0-0.6); ABSOLUTE LYMPHOCYTES (AUTO) 1.6 10^3/uL (0.5-4.7); ABSOLUTE MONOCYTES (AUTO) 0.7 10^3/uL (0.1-1.4); ABSOLUTE NEUT (AUTO) 3.3 10^3/uL (1.7-8.2); BASOPHILS % (AUTO) 0.9 % (0-2); EOSINOPHILS % (AUTO) 5.6 % (0-6); HEMATOCRIT 36.7 % (37.9-51.0); HEMOGLOBIN 12.5 g/dL (13.5-17.0); LYMPHOCYTES % (AUTO) 27.1 % (13-45); MEAN CORPUSCULAR HEMOGLOBIN 30.4 pg (27.0-33.4); MEAN CORPUSCULAR HGB CONC 33.9 g/dL (32.0-36.0); MEAN CORPUSCULAR VOLUME 90 fl (80-97); MONOCYTES % (AUTO) 11.3 % (3-13); PLATELET COUNT 206 10^3/uL (150-450); RED CELL DISTRIBUTION WIDTH 14.5 % (11.5-14.0); SEGMENTED NEUTROPHILS % (AUTO) 55.1 % (42-78); TOTAL CELLS COUNTED % (AUTO) 100 %
[2020-07-17 09:49] LABS: PROTHROMBIN TIME 13.4 SEC (11.4-15.4)
[2020-07-17 09:49] LABS: APPEARANCE,URINE CLEAR; BILIRUBIN,URINE NEGATIVE (NEGATIVE); COLOR,URINE YELLOW; GLUCOSE, URINE NEGATIVE (NEGATIVE); KETONES,URINE NEGATIVE (NEGATIVE); LEUKOCYTE ESTERASE,URINE NEGATIVE (NEGATIVE); NITRITE,URINE NEGATIVE (NEGATIVE); PROTEIN,URINE NEGATIVE (NEGATIVE); URINE SPECIFIC GRAVITY 1.016; UROBILINOGEN,URINE NEGATIVE mg/dL (<2.0)
== END ==
LOC: OD 08:40
PROVIDERS: ATTEND Pain Medicine Interventional Pain Medicine
DX: M54.17 Radiculopathy, lumbosacral region (principal); Z51.81 Encounter for therapeutic drug level monitoring; Z79.899 Other long term (current) drug therapy
CPT/HCPCS: 36415; 81001; 85025; 85610; 85730

== ENCOUNTER → 2020-08-17 | Outpatient (CLI) | payer MEDICARE, OTHER ==
[2020-08-17 08:30] LABS: APPEARANCE,URINE CLEAR; BILIRUBIN,URINE NEGATIVE (NEGATIVE); COLOR,URINE YELLOW; GLUCOSE, URINE NEGATIVE (NEGATIVE); KETONES,URINE NEGATIVE (NEGATIVE); LEUKOCYTE ESTERASE,URINE NEGATIVE (NEGATIVE); NITRITE,URINE NEGATIVE (NEGATIVE); PROTEIN,URINE NEGATIVE (NEGATIVE); URINE SPECIFIC GRAVITY 1.015; UROBILINOGEN,URINE NEGATIVE mg/dL (<2.0)
[2020-08-17 08:43] LABS: ABSOLUTE EOSINOPHILS # (AUTO) 0.5 10^3/uL (0.0-0.6); HEMOGLOBIN 12.7 g/dL (13.5-17.0); TOTAL CELLS COUNTED % (AUTO) 100 %
[2020-08-17 08:46] LABS: ABSOLUTE BASOPHILS # (AUTO) 0.1 10^3/uL (0.0-0.2); ABSOLUTE LYMPHOCYTES (AUTO) 3.1 10^3/uL (0.5-4.7); ABSOLUTE NEUT (AUTO) 4.5 10^3/uL (1.7-8.2); BASOPHILS % (AUTO) 1.3 % (0-2); EOSINOPHILS % (AUTO) 5.1 % (0-6); HEMATOCRIT 38.6 % (37.9-51.0); LYMPHOCYTES % (AUTO) 34.1 % (13-45); MEAN CORPUSCULAR HEMOGLOBIN 29.8 pg (27.0-33.4); MEAN CORPUSCULAR HGB CONC 32.9 g/dL (32.0-36.0); MEAN CORPUSCULAR VOLUME 91 fl (80-97); MONOCYTES % (AUTO) 10.9 % (3-13); PLATELET COUNT 227 10^3/uL (150-450); RED BLOOD COUNT 4.26 10^6/uL (4.35-5.55); SEGMENTED NEUTROPHILS % (AUTO) 48.6 % (42-78); WHITE BLOOD COUNT 9.2 10^3/uL (4.0-10.5)
[2020-08-17 09:19] LABS: INTERNATIONAL RATION (INR) 0.93; PROTHROMBIN TIME 12.7 SEC (11.4-15.4)
== END ==
LOC: OD 07:37
PROVIDERS: ATTEND Pain Medicine Interventional Pain Medicine
DX: M54.16 Radiculopathy, lumbar region (principal)
CPT/HCPCS: 36415; 81001; 85025; 85610; 85730

== ENCOUNTER 2020-10-16 06:57 | Day surgery (SDC) | payer MEDICARE, OTHER ==
[2020-10-12 09:08] LABS: HEMATOCRIT 37.8 % (37.9-51.0); HEMOGLOBIN 12.7 g/dL (13.5-17.0); MEAN CORPUSCULAR HEMOGLOBIN 30.2 pg (27.0-33.4); MEAN CORPUSCULAR HGB CONC 33.6 g/dL (32.0-36.0); MEAN CORPUSCULAR VOLUME 90 fl (80-97); PLATELET COUNT 226 10^3/uL (150-450); RED BLOOD COUNT 4.22 10^6/uL (4.35-5.55); RED CELL DISTRIBUTION WIDTH 14.7 % (11.5-14.0); WHITE BLOOD COUNT 6.8 10^3/uL (4.0-10.5)
--- NOTE | 2020-10-12 09:11 | RADIOLOGY REPORT (SQ) ---
EXAM DESCRIPTION: CHEST 2 VIEWS IMAGES COMPLETED DATE/TIME: 10/12/2020 9:02 am REASON FOR STUDY: PRE OP COMPARISON: AP view of the chest from 09/10/2015. EXAM PARAMETERS: NUMBER OF VIEWS: Two views. TECHNIQUE: PA and lateral views of the chest were obtained. RADIATION DOSE: NA LIMITATIONS: None. FINDINGS: LUNGS AND PLEURA: No consolidation, pleural effusion or pneumothorax. MEDIASTINUM AND HILAR STRUCTURES: No mediastinal or hilar contour abnormality. HEART AND VASCULAR STRUCTURES: The cardiac silhouette and pulmonary vasculature are within normal roland its. BONES: No acute findings. HARDWARE: None in the chest. OTHER: No other finding. IMPRESSION: No acute cardiopulmonary process. TECHNICAL DOCUMENTATION: JOB ID: [id number] 2010 [employer]- All Rights Reserved Reading location - IP/workstation name: [email or web address]
[2020-10-12 09:38] LABS: INTERNATIONAL RATION (INR) 0.95; PARTIAL THROMBOPLASTIN TIME 31.4 SEC (23.5-35.8); PROTHROMBIN TIME 12.9 SEC (11.4-15.4)
[2020-10-12 09:57] LABS: APPEARANCE,URINE CLEAR; BILIRUBIN,URINE NEGATIVE (NEGATIVE); COLOR,URINE YELLOW; GLUCOSE, URINE NEGATIVE (NEGATIVE); KETONES,URINE TRACE mg/dL (NEGATIVE); LEUKOCYTE ESTERASE,URINE NEGATIVE (NEGATIVE); NITRITE,URINE NEGATIVE (NEGATIVE); PROTEIN,URINE NEGATIVE (NEGATIVE); URINE SPECIFIC GRAVITY 1.019; UROBILINOGEN,URINE NEGATIVE mg/dL (<2.0)
--- NOTE | 2020-10-12 13:26 | EKG REPORT ---
SEVERITY:- NORMAL ECG - SINUS RHYTHM : Confirmed by: Heri Steve 12-Oct-2020 13:25:37
[~2020-10-16 06:57] MED LIST changes: +CEFAZOLIN 1 GM/D5W RTU 1 GM/50 ML RTUPB IV ONE; +CEFAZOLIN 1 GM/D5W RTU 1 GM/50 ML RTUPB IV PRN; -CEFAZOLIN 2 GM/D5W RTU 2 GM/50 ML RTUPB IV PRN; +LACTATED RINGERS 1000 ML IV PRN; -NORMAL SALINE 1000 ML (RENAL PATIENTS) IV PRN
[2020-10-16] MEDS ORDERED: FENTANYL CITRATE INJ/PF 100 MCG/2 ML AMPUL ONE (07:05)
[2020-10-16] MEDS ORDERED: MIDAZOLAM 2 MG/2 ML INJ ONE (07:05)
[2020-10-16] MEDS ORDERED: ONDANSETRON HCL INJ/PF 4 MG/2 ML SDV ONE (07:05)
[2020-10-16] MEDS ORDERED: DEXAMETHASONE SOD PHOSPHATE INJ 4 MG/1 ML VIAL ONE (07:05)
[2020-10-16] MEDS ORDERED: PROPOFOL INJ 200 MG/20 ML VIAL IV ONE (07:05)
[2020-10-16] MEDS ORDERED: KETOROLAC TROMETHAMINE 60 MG/2 ML SDV ONE (07:05)
[2020-10-16] MEDS ORDERED: SODIUM BICARBONATE 4.2% INJ (2.5 MEQ/5 ML) VIAL ONE (08:45)
[2020-10-16] MEDS ORDERED: LIDOCAINE 1% INJ-PF (10 MG/ML) 30 ML SDV ONE (08:45)
[2020-10-16] MEDS ORDERED: BUPIVACAINE HCL 0.25% /EPINEPHRINE INJ/PF 30 ML SDV ONE (08:46)
[2020-10-16] MEDS ORDERED: BACITRACIN INJ 50,000 UNIT VIAL ONE (08:46)
[2020-10-16] MEDS ORDERED: DIPHENHYDRAMINE HCL 50 MG/ML VIAL IV PRN (10:35)
[2020-10-16] MEDS ORDERED: FENTANYL CITRATE INJ/PF 100 MCG/2 ML AMPUL IV PRN ×3 (10:35)
[2020-10-16] MEDS ORDERED: PROMETHAZINE HCL INJ 25 MG/1 ML VIAL IV PRN (10:35)
[2020-10-16] MEDS ORDERED: MEPERIDINE HCL/PF INJ 25 MG/1 ML DISP.SYRIN IV PRN (10:35)
[2020-10-16] MEDS ORDERED: ONDANSETRON HCL INJ/PF 4 MG/2 ML SDV IV PRN (10:35)
--- NOTE | 2020-10-16 11:40 | Operative Report ---
Operative Report DATE OF SURGERY: 10/16/20 PREOPERATIVE DIAGNOSIS: Postlaminectomy pain syndrome POSTOPERATIVE DIAGNOSIS: Same OPERATION: Implantation percutaneous spinal cord stimulator system with stim wave 1ST INCENDIARIES SUPERVISOR: TEODORO DELA CRUZ ANESTHESIA: Moderate Sedation TISSUE REMOVED OR ALTERED: None COMPLICATIONS: None ESTIMATED BLOOD LOSS: minimal INTRAOPERATIVE FINDINGS: Dual octreotide leads one placed from the top of T9 to the top T11 the other from the top of T8 to the top of T10 PROCEDURE: After obtaining informed consent and advising the patient of the risks and benefits, including serious neurological injury, bleeding and infection, allergic reaction and , the patient was taken to the operating room. After discussion with the patient, a suitable site was marked for the impulse generator pocket. The patient was then placed comfortably in the prone position. Comfort was assessed visually and verbally. The patient was then prepped with chlorhexidine with a suitable drying time prior to drapping. The patient was evaluated under fluoroscopy in the AP view. An adequate space was found at T12/L1 and a midline incision site was marked to allow needle entry. The skin overlying both the midline and coil sites were anesthetized with 1% lidocaine with bicarbonate, followed by bupivacaine 0.25% with epinephrine. Using a left paramedian approach, a 14 gauge Coude needle was placed in the epidural space at T12-L1 using a loss or resistance to saline technique. A second needle using a right paramedian approach was placed in the epidural space in the same manner. An electrode was inserted through each needle and advanced under serial fluoroscopy views to the top of T8 and the top of T9 respectively on the right and left. After placement, lateral imaging was obtained for appropriate posterior position in the epidural space. At this juncture an incision was made along the length of the daily needle to the deeper fascia. The stylets were then removed from the needles and the stim wave antenna was then threaded through the leads. The Coude needles were removed over the leads making sure no migration leads occurred using AP fluoroscopy. Then the Sand shark apparatus provided and a stim wave kit was loaded and threaded over the leads. The apparatus was threaded to just deep to the spinous process. When position was confirmed using AP and lateral fluoroscopy the Sand shark anchor was deployed. The apparatus was removed reloaded and utilized on the opposite lead in identical fashion. At this juncture a pocket was created just to the right of midline in the superficial tissue after skin anesthesia with 1% lidocaine. Tunneling tracts were anesthetized as well with 1% lidocaine using a 3.5 inch 25 Gauge spinal needle. The Coude needle was then utilized to tunnel the lead from the puncture sites to the superficial pocket. After each lead was tunneled to the pocket, a knot was tied in each lead, and the ends trimmed. A loop was created and utilizing the loop ends and this was secured using 0-Merseline. The loop was then tucked into the pocket. Irrigation was performed using dilute Betadine solution. Subsequently the needle puncture sites were closed using claude. The pocket site was closed using 3-0 Vicryl in interrupted vertical mattress fashion. The skin was then closed using Dermabond glue.When this was dry, suitable tegaderm sponge dressings were placed. The patient was then taken back to PACU for postoperative care and monitoring.
[2020-10-16] MEDS ORDERED: OXYCODONE HCL IR 5 MG TABLET PO PRN (12:00)
[2020-10-16] MEDS ORDERED: CEFAZOLIN 1 GM/D5W RTU 1 GM/50 ML RTUPB IV ONE (12:52)
[2020-10-16 13:33] VITALS: BP 144/83
--- NOTE | 2020-10-16 14:09 | RADIOLOGY REPORT (SQ) ---
EXAM DESCRIPTION: NO CHG FLUORO; THORACOLUMBAR SPINE AP/LAT IMAGES COMPLETED DATE/TIME: 10/16/2020 1:42 pm REASON FOR STUDY: SPINAL STIMULATOR PLCMT ASSISTED WITH FLUORO IN OR COMPARISON: None. FLUOROSCOPY TIME: 9.7 minutes 11 Images saved to PACS LIMITATIONS: None. PROCEDURE: Neurostimulator electrode placement FINDINGS: Images from fluoro document the procedure. IMPRESSION: Neurostimulator electrode placement. Refer to operative note for further information. COMMENT: PQRS 6045F: Fluoroscopy time of the procedure is documented in the report. TECHNICAL DOCUMENTATION: JOB ID: [id number] 2010 [employer]- All Rights Reserved Reading location - IP/workstation name: [email or web address]
--- NOTE | 2020-10-16 14:09 | RADIOLOGY REPORT (SQ) ---
EXAM DESCRIPTION: NO CHG FLUORO; THORACOLUMBAR SPINE AP/LAT IMAGES COMPLETED DATE/TIME: 10/16/2020 1:42 pm REASON FOR STUDY: SPINAL STIMULATOR PLCMT ASSISTED WITH FLUORO IN OR COMPARISON: None. FLUOROSCOPY TIME: 9.7 minutes 11 Images saved to PACS LIMITATIONS: None. PROCEDURE: Neurostimulator electrode placement FINDINGS: Images from fluoro document the procedure. IMPRESSION: Neurostimulator electrode placement. Refer to operative note for further information. COMMENT: PQRS 6045F: Fluoroscopy time of the procedure is documented in the report. TECHNICAL DOCUMENTATION: JOB ID: [id number] 2010 [employer]- All Rights Reserved Reading location - IP/workstation name: [email or web address]
== END 2020-10-16 13:25 | disposition home or self-care (01) ==
LOC: OROUT 06:57
PROVIDERS: ATTEND Pain Medicine Interventional Pain Medicine
DX: M96.1 Postlaminectomy syndrome, not elsewhere classified (principal); M54.16 Radiculopathy, lumbar region; G89.4 Chronic pain syndrome; Z79.899 Other long term (current) drug therapy; Z20.828 Contact with and (suspected) exposure to other viral communicable diseases; Z79.01 Long term (current) use of anticoagulants; Z79.84 Long term (current) use of oral hypoglycemic drugs; Z79.891 Long term (current) use of opiate analgesic; E78.00 Pure hypercholesterolemia, unspecified; E11.9 Type 2 diabetes mellitus without complications; K21.9 Gastro-esophageal reflux disease without esophagitis; I10 Essential (primary) hypertension; F41.9 Anxiety disorder, unspecified; F17.210 Nicotine dependence, cigarettes, uncomplicated; F32.9 Major depressive disorder, single episode, unspecified; Z85.831 Personal history of malignant neoplasm of soft tissue
CPT/HCPCS: 63650; 93005; 36415 ×2; 82947; 84132; 85027; 85610; 85730; 81001; 71046; 72080; 93010; 01936; U0003; J2250; J3490 ×3; J0690; J1100; J1885; J3010; J2405; J2704; C9803; 1936; 87635